=== PATIENT | male | born 1965 | race Caucasian/White ===

== ENCOUNTER 2017-01-29 11:33 | Emergency (ER) | payer SELFPAY ==
[2017-01-29 11:35] VITALS: BP 150/72; PULSE 106; RESP 24; TEMP 97.8; O2SAT 90
== END 2017-01-29 11:52 | disposition left against medical advice (07) ==
LOC: NED 11:33
DX: Z53.21 Procedure and treatment not carried out due to patient leaving prior to being seen by health care provider (principal)
CPT/HCPCS: 99281